=== PATIENT | female | born 1970 | race Caucasian/White ===

== ENCOUNTER 2016-11-10 10:47 | Outpatient (CLI) | payer BC ==
[~2016-11-10] VITALS: Ht 172.7 cm; Wt 68.2 kg
--- NOTE | ~2016-11-10 | HEMODYNAMI ---
PATIENT:DACIA ALBARADO MEDICAL RECORD: [id number] : 66 LOCATION:[facility] ADMISSION DATE: 11/10/16 Generatedon:11/10/201614:16 Patient name: DACIA ALBARADO Patient #: [id number] SSN: D OB: 1970 Date of study: 11/10/2016 Page: Of Hemodynamic Procedure Report Patient Data Patient Demographics Procedure consent was obtained First Name: DACIA Gender: Female Last Name: VERENA : 1970 Patient #: [id number] Age: 46 year(s) Race: Unknown Additional ID: [id number] Contact details [address]: [address] [place] [address] ROAD State: [place] City: [place] Zip code: [address] Admission Admission Data Admission Date: 11/10/2016 Admission Time: 10:47 Admit Source: Other Procedure Procedure Types Cath Procedure Diagnostic Procedure LHC LHC w/Coronaries Miscellaneous Procedures Moderate Sedation up to 15 minutes Procedure Description Procedure Date Procedure Date: 11/10/2016 Procedure Start Time: 14:06 Procedure End Time: 14:16 Procedure Staff Name Function eLif Valerio MD Performing Physician Jose David Márquez RT Scrub Denisse Mendez RN Nurse Rigoberto Carney RT Monitor Procedure Data Cath Procedure Fluoroscopy Diagnostic fluoroscopy Total fluoroscopy Time: 1.1 time: 1.1 min min Diagnostic fluoroscopy Total fluoroscopy dose: 106 dose: 106 mGy mGy Contrast Material Contrast Material Type Amount (ml) Isovue 300 63 Entry Location Entry Primary Successful Side Size Upsize Upsize Entry Closure Succes sful Closure Location (Fr) 1 (Fr) 2 (Fr) Remarks Device Remarks Femoral Right 5 Fr Exoseal artery Estimated blood loss: 10 ml Diagnostic catheters Device Type Used For End Catheter Placement Cordis 5Fr JL 4.0 Procedure Catheter (MP) Cordis 5Fr 3DRC Catheter Procedure (MP) Cordis 5Fr Pigtail Procedure Catheter (MP) Procedure Complications No complications Procedure Medications Medication Administration Route Dosage Oxygen NC 2 l/min Heparin Flush Bag added to field 2 bags (1000units/500ml NS) Lidocaine 2% added to field 20 unlisted medication Versed I.V. 1 mg Fentanyl I.V. 50 mcg Versed I.V. 1 mg Fentanyl I.V. 50 mcg Fentanyl I.V. 50 mcg Fentanyl I.V. 50 mcg Hemodynamics Rest Heart Rate: 89 (bpm) Pressure Samples Time Site Value (mmHg) Purpose Heart Use Rate(bpm) 14:07 AO 143/81(109) Snapshot 99 14:10 LV 143/-23,11 Snapshot 100 14:11 AO 146/78(104) Pullback 112 14:11 LV 163/14,48 Pullback 112 Gradients Valve Time Site 1 Site 2 Mean SEP/DFP Peak To Heart Use (mmHg) (sec/min) Peak Rate (mmHg) (bpm) Aortic 14:11 LV AO 17 29 17 112 163/14,48 146/78(104) Calculations Valve P-P Mean Valve Index Valve Source Name Gradient Area Flow (cm2) Aortic 17 17 17 17 Snapshots Pre Cath Intra NCS Post Cath Vital Signs Time Heart Resp SPO2 etCO2 OT3jkik NIBP (mmHg) Rhythm Pain Sedation Rate (ipm) (%) (mmHg) (mmHg) Status Level (bpm) 13:48:21 88 29 99 0 0 153/99(134) NSR 0 (11) 10(A) , No pain 13:53:10 93 19 99 0 0 159/97(137) NSR 0 (11) 10(A) , No pain 13:57:25 88 22 96 0 0 159/86(120) NSR 0 (11) 10(A) , No pain 14:01:41 91 16 96 0 0 141/87(114) NSR 0 (11) 10(A) , No pain 14:05:51 99 17 100 0 0 141/85(101) NSR 0 (11) 9(A) , No pain 14:10:01 107 18 100 0 0 136/83(120) NSR 0 (11) 9(A) , No pain 14:14:09 102 20 100 0 0 129/86(102) NSR 0 (11) 9(A) , No pain Medications Time Medication Route Dose Verified Delivered Reason Notes E ffectiveness by by 13:46:53 Oxygen NC 2 Leif Denisse used for l/min [facility] Jacob Mendez RN procedure 13:47:02 Heparin Flush added 2 Leif Yadav used for Bag to bags [place]man [place] procedure (1000units/500ml field MD SON NS) 13:47:11 Lidocaine 2% added 20ml Leif Yadav used for to vial [place] Iman procedure field MD SON 13:50:03 pt request Denisse Denisse pt Andrea Mendez RN informed staff nurse that she had nipple piercings. pt requested that RN remove them for her. This RN requested direction on how best to remove piercings, Pt directed this Rn to unscrew on side of the piercing bars. The piercings were removed from each nipple with gloved hands, providing for pt privacy. Ally RT remained in room during removal. pt thanked this RN for removing the piercings. the piercings were then placed in labeled denture cup and will remain with PT. 13:57:46 Versed I.V. 1 mg Le[address] [place] [address] [facility] Jacob Mendez RN sedation 13:57:53 Fentanyl I.V. 50 Leif [place] for [facility] Jacob Mendez RN sedation 13:59:30 Versed I.V. 1 mg Leif Denisse for [facility] Jacob Mendez RN sedation 13:59:36 Fentanyl I.V. 50 Leif [place] for [facility] Jacob Mendez RN sedation 14:02:41 Fentanyl I.V. 50 Leif Denisse for [facility] Jacob Mendez RN sedation 14:05:13 Fentanyl I.V. 50 Leif Denisse for [facility] Jacob Mendez RN sedation Procedure Log Time Note 13:15:16 Denisse Mendez RN sent for patient. Start room use. 13:15:56 Informed consent obtained and on chart 13:16:00 Admit Source: Other 13:16:14 Diagnostic Cath status Elective 13:16:17 Time tracking: Regular hours 13:16:22 Plan of Care:Hemodynamics will remain stable., Cardiac rhythm will remain stable., Comfort level will be maintained., Respiratory function will remain adequate., Patient/ family verbilizes understanding of procedure., Procedure tolerated without complication., Recovers from procedure without complications.. 13:17:15 H&P Date Dictated: 11/03/2016 Within 30 days and on chart., H&P Addendum completed by physician on day of procedure. (MUST COMPLETE FOR ALL OUTPATIENTS). 13:41:55 Patient received from Pre/Post Procedure Room to CCL 1 Alert and oriented. Tansferred to table in Supine position. 13:41:56 Warm blankets applied, and raymond hugger turned on for patient comfort. 13:41:56 Correct patient and procedure confirmed by team. 13:41:59 ECG and BP/O2 sat monitors applied to patient. 13:46:53 Oxygen 2 l/min NC was administered by Denisse Mendez RN; used for procedure; 13:47:02 Heparin Flush Bag (1000units/500ml NS) 2 bags added to field was administered by Leif Valerio MD; used for procedure; 13:47:11 Lidocaine 2% 20ml vial added to field was administered by Leif Valerio MD; used for procedure; 13:47:17 Vital chart was started 13:50:03 pt request was administered by Denisse Mendez RN; ; pt informed staff that she had nipple piercings. pt requested that RN remove them for her. This RN requested direction on how best to remove piercings, Pt directed this Rn to unscrew on side of the piercing bars. The piercings were removed from each nipple with gloved hands, providing for pt privacy. Ally RT remained in room during removal. pt thanked this RN for removing the piercings. the piercings were then placed in labeled denture cup and will remain with PT. 13:54:31 Baseline sample Acquired. 13:54:39 Rhythm: sinus rhythm 13:54:40 Full Disclosure recording started 13:54:42 Pre-procedure instructions explained to patient. 13:54:42 Pre-op teaching completed and patient verbalized understanding. 13:54:43 Family in waiting room. 13:54:45 Patient NPO since Midnight. 13:54:46 Is the patient allergic to Iodine/contrast media? No. 13:54:48 Is patient on blood thinner?No 13:54:51 Patient diabetic? No. 13:54:59 HCG/Urine : completed and on chart, negative 13:55:04 Previous problem with sedation/anesthesia? No ? 13:55:06 Snore? Yes 13:55:07 Sleep apnea? No 13:55:08 Deviated septum? No 13:55:08 Opens mouth fully? Yes 13:55:09 Sticks out tongue? Yes 13:55:11 Airway obstruction? No ? 13:55:13 Dentures? No ? 13:55:15 Pre procedure: right dorsailis pedis pulse 1+ Palpable, but thready & weak; easily obliterated 13:55:17 Patient pain scale 0/10 ?. 13:55:21 IV patent on arrival in left forearm with 0.9% NaCl at [facility]. 13:55:38 Lab results completed and on chart. 13:55:41 Right groin area was prepped with chlora-prep and draped in sterile fashion 13:55:42 Alarms reviewed by R. N. 13:55:43 Sharps counted by scrub and verified by R.N. 13:57:24 --------ALL STOP TIME OUT------ 13:57:24 Final Timeout: patient, procedure, and site verified with staff and physician. All members of the team are in agreement. 13:57:33 Right groin site verified by team. 13:57:37 Physical assessment completed. ASA score P 2 - A patient with mild systemic disease as per Leif Valerio MD. 13:57:41 Sedation plan: IV Moderate Sedation Versed, Fentanyl 13:57:46 Versed 1 mg I.V. was administered by Denisse Mendez RN; for sedation; 13:57:53 Fentanyl 50 mcg I.V. was administered by Denisse Mendez RN; for sedation; 13:59:30 Versed 1 mg I.V. was administered by Denisse Mendez RN; for sedation; 13:59:36 Fentanyl 50 mcg I.V. was administered by Denisse Mendez RN; for sedation; 14:00:57 Zero performed for pressure channel P1 14:02:41 Fentanyl 50 mcg I.V. was administered by Denisse Mendez RN; for sedation; 14:05:13 Fentanyl 50 mcg I.V. was administered by Denisse Mendez RN; for sedation; 14:06:02 Use device set Femoral Dx 14:06:03 Tegaderm 4 x 4 opened to sterile field. 14:06:05 Acist Hand Control opened to sterile field. 14:06:05 Acist Manifold opened to sterile field. 14:06:06 Acist Syringe opened to sterile field. 14:06:06 Bag Decanter opened to sterile field. 14:06:07 Medline Cath Pack opened to sterile field. 14:06:07 Terumo 5Fr [place] Sheath opened to sterile field. 14:06:08 St [place] 260cm J .035 wire opened to sterile field. 14:06:09 Diagnostic Infinity 5Fr Multipack catheter opened to sterile field. 14:06:14 Procedure started. 14:06:19 Local anesthetic to right femoral artery with Lidocaine 2% by Leif Valerio MD.INITIAL ACCESS ONLY 14:06:40 A 5 Fr sheath was inserted into the Right Femoral artery 14:07:05 A Cordis 5Fr JL 4.0 Catheter (MP) was advanced over the wire and used for Procedure. 14:07:08 LCA angiography performed. 14:07:50 Catheter removed. 14:08:28 A Cordis 5Fr 3DRC Catheter (MP) was advanced over the wire and used for Procedure. 14:08:53 RCA angiography performed. 14:08:55 Catheter removed. 14:09:19 A Cordis 5Fr Pigtail Catheter (MP) was advanced over the wire and used for Procedure. 14:09:57 LV angiography performed. 14:09:59 LV gram done using RODRIGUEZ 14:10:05 EF : 55 % 14:10:06 LV hemodynamics recorded. 14:10:09 Injector settings: Ml/sec: 10, Volume: 20, 14:12:37 Catheter removed. 14:12:45 Cordis 5Fr Exoseal opened to sterile field. 14:12:59 Sheath removed intact; hemostasis achieved with Exoseal to the Right Femoral artery. 14:13:08 Procedure ended.(Physican Out) 14:13:32 Fluoroscopy time 01.10 minutes. 14:13:38 Flurop Dose total: 106 14:13:38 Fluoroscopy dose: 106 mGy 14:13:43 Contrast amount:Isovue 300 63ml. 14:13:45 Sharps counted by scrub and verified by R.N. 14:14:14 Insertion/operative site no bleeding no hematoma. 14:14:23 Post-op/insertion site Right Femoral artery dressed using a 4 x 4 and Tegaderm. 14:14:24 Post Procedure Pulses reassessed and unchanged 14:14:27 Post-procedure physical assessment completed. ASA score P 2 - A patient with mild systemic disease as per Leif Valerio MD. 14:14:30 Post procedure rhythm: unchanged. 14:14:32 Estimated blood loss: 10 ml 14:14:33 Post procedure instruction explained to patient.Patient verbalizes understanding. 14:14:34 Patient needs reinforcement of post procedure teaching. 14:14:42 Procedure type changed to Cath procedure, Diagnostic procedure, LHC, LHC w/Coronaries, Miscellaneous Procedures, Moderate Sedation up to 15 minutes 14:14:48 Procedure Complication : No complications 14:14:51 Procedure and supply charges have been captured, reviewed, submitted and are correct. 14:16:21 Vital chart was stopped 14:16:22 See physician's report for complete and final results. 14:16:26 Report given to Pre/Post Procedure Room. 14:16:29 Patient transfered to Pre/Post Procedure Room with Stretcher. 14:16:31 Procedure ended. 14:16:31 Full Disclosure recording stopped 14:16:34 End room use (Document Last) Device Usage Item Name Manufacture Quantity Catalog Hospital Part Current Minimal Lo t# / Number Charge Number Stock Stock Serial# Code Tegaderm 4 3M 1 [id number] 5 x 4 Acist Hand Acist 1 31451 132368 854553 434760 5 Control [employer] Inc Acist Acist 1 72356 293610 859411 217312 5 Manifold [employer] Inc Acist Acist 1 57886 826014 016577 752987 20 Syringe [employer] Inc Bag Microtek 1 2002S 431405 84395 339756 5 Decanter [employer] Medline Cardinal 1 [id number] 745336 69359 947779 5 Cath Pack Health Terumo 5Fr Terumo 1 [id number] 114124 759838 389449 [address] [address] Elroy 1 827769 596015 599573 286908 30 260cm J .035 wire Diagnostic Cardinal 1 [id number] 317419 51039 486932 30 Infinity Health 5Fr Multipack catheter Cordis 5Fr Cardinal 1 385447 5 JL 4.0 Health Catheter (MP) Cordis 5Fr Cardinal 1 808264 5 3DRC Health Catheter (MP) Cordis 5Fr Cardinal 1 144615 5 Pigtail Health Catheter (MP) Cordis 5Fr Cardinal 1 EX500 754117 715282 701898 10 [facility] Signature Audit [place] Stage Time Signature Unsigned Intra-Procedure 11/10/2016 Rigoberto Carney 2:16:48 PM RT(R) Signatures Monitor : Rigoberto Carney RT Signature : Date : Time : [id number] [place] [address]
[2016-11-10 11:11] VITALS: BP 154/81; Ht 172.7 cm; Wt 68.2 kg
[2016-11-10 11:58] LABS: BASOPHILS 0.2 % (0-2); EOSINOPHILS 1.2 % (0-7); HEMATOCRIT 38.1 % (36.0-48.0); HEMOGLOBIN 12.9 g/dL (12-16); IMMATURE GRANULOCYTES 0.2 % (0-5); LYMPHOCYTES 30.3 % (15-50); MCH 31.3 pg (26.0-34.0); MCHC 33.9 g/dL (31.0-37.0); MCV 92.5 fL (80.0-100.0); MEAN PLATELET VOLUME 10.5 fL (7.4-10.4); NEUTROPHILS 63.1 % (40-80); PLATELET COUNT 328 10x3/uL (130-400); RBC 4.12 10x6/uL (4.00-5.40); RDW 12.7 % (11.5-14.5); WBC 6.5 10x3/uL (4.8-10.8)
[2016-11-10 12:10] LABS: CALC OSMOLALITY 276 mosm/kg (275-300); CALCIUM 8.6 mg/dL (8.5-10.1); CARBON DIOXIDE 27.4 mmol/L (21.0-32.0); CHLORIDE - SERUM 103 mmol/L (98-107); CREATININE - SERUM 0.6 mg/dL (0.6-1.3); GLUCOSE 91 mg/dL (74-106); POTASSIUM - SERUM 3.6 mmol/L (3.5-5.1); SODIUM 139 mmol/L (136-145); UREA NITROGEN 9 mg/dL (7-18); eGFR NON AFRICAN AMERICAN > 90 mL/min (90-120)
[2016-11-10 13:32] LABS: HCG SERUM NEGATIVE (NEGATIVE)
--- NOTE | 2016-11-12 12:53 | OP ---
PATIENT NAME: DACIA ALBARADO MEDICAL RECORD: [id number] :66 LOCATION:D.CAT ADMISSION DATE: SURGEON: DAJUAN HUMMEL MD DATE OF OPERATION: 11/10/2016 PROCEDURE: Left heart catheterization, selective coronary angiography, right femoral artery approach. CATHETERS: A 5-Kinyarwanda sheath, 5/4 left and right Claus, 5/4 pig. The procedure was well tolerated. The patient returned to the palacios, sheath removed. ExoSeal device was placed. FINDINGS: Left ventriculography in 30-degree RODRIGUEZ view, normal wall motion, normal systolic function. CORONARY ANATOMY: Left main: Left main is free of disease. LAD: Free of disease in the diagonal system. CIRCUMFLEX: Left dominant system free of disease. RIGHT CORONARY ARTERY: Rudimentary free of disease. TRANSINT:[id number] Voice Confirmation ID: [id number] DOCUMENT ID: [id number] DAJUAN HUMMEL MD at 1253 CC: [id number] DICTATION DATE: 11/10/16 1417 INSIDE SALES ENGINEER: 11/11/16 0054 DEP CLI 11/10/16 [address] [place] [address]
== END 2016-11-10 16:40 | disposition home or self-care (01) ==
LOC: D.CATH 10:47
PROVIDERS: Internal Medicine Interventional Cardiology
DX: I20.9 Angina pectoris, unspecified (principal)